=== PATIENT | male | born 1995 | race Caucasian/White ===

== ENCOUNTER 2016-12-15 09:18 | Inpatient (IN) | payer BC ==
[~2016-12-15] VITALS: Ht 180.3 cm; Wt 81.2 kg
[~2016-12-15 09:18] MED LIST: BACTRIM,SEPT1 TABLET PO; CARAFATE100 MG/ML PO; HYDROCODON-ACE1 EAC7 PO; KEFLEX500 MG PO; PEPCID40 MG PO
[2016-12-15 10:38] LABS: ADD MIUA? YES; BILIRUBIN SMALL; BLOOD NEGATIVE; COLOR AMBER ((YELLOW)); GLUCOSE (STRIP) NEGATIVE; KETONES 20; LEUKOCYTES TRACE; NITRITE NEGATIVE; PROTEIN (STRIP) 100; SPECIFIC GRAVITY 1.039 (1.000-1.030)
[2016-12-15 10:48] LABS: HEMATOCRIT 48.2 % (38.0-50.0); MCH 30.3 PG (29.0-34.0); MCHC 34.9 G/DL (30.0-36.0); MEAN PLAT.VOLUME 9.7 uM^3 (9.0-12.4); PLATELET COUNT 357 K/uL (156-360); RBC DIS.WIDTH-CV 12.3 % (11.8-14.6); RBC DIS.WIDTH-SD 39.3 % (39-53); RED BLOOD COUNT 5.54 M/uL (4.00-5.50); WHITE BLOOD COUNT 13.3 K/uL (4.1-10.2)
[2016-12-15 10:56] LABS: BACTERIA NONE SEEN /HPF; EPITHELIAL CELLS NONE SEEN /HPF; MUCUS TRACE /LPF; RED BLOOD CELLS 0-5 /HPF (0-5); UCUL ADDED? NO; WHITE BLOOD CELLS 0-5 /HPF (0-5)
[2016-12-15 11:02] LABS: CHLORIDE 107 mEq/L (99-109); POTASSIUM 3.2 mEq/L (3.7-5.4); SODIUM 141 mEq/L (136-147)
[2016-12-15 11:04] LABS: GLUCOSE 146 mg/dL (70-99)
[2016-12-15 11:05] LABS: ANION GAP 18 MEQ/L (2-14)
[2016-12-15 11:06] LABS: TOTAL BILIRUBIN 1.7 mg/dL (0.0-1.0)
[2016-12-15 11:07] LABS: ALKALINE PHOSPHATASE 55 IU/L (3-129)
[2016-12-15 11:08] LABS: GFR ESTIMATE (CALCULATED) > 59 mL/min/
[2016-12-15 11:09] LABS: UREA NITROGEN (BUN) 17 mg/dL (9-23)
[2016-12-15 11:11] LABS: LIPASE 34 U/L (1.0-51.0)
[2016-12-15] MEDS ORDERED: ONDANSETRON ODT8 MG PO (13:20)
[2016-12-15 16:54] LABS: INTER. NORMALIZED RATIO 1.1; PROTHROMBIN TIME 11.3 (9.2-11.2); PTT 25.8 (25-32)
[2016-12-15 17:10] VITALS: BP 145/88
[2016-12-15 19:49] VITALS: BP 125/69
[2016-12-15 23:31] VITALS: BP 122/56
[2016-12-16 00:51] LABS: HEMATOCRIT 40.9 % (38.0-50.0)
[2016-12-16 05:54] LABS: HEMATOCRIT 41.4 % (38.0-50.0); MCH 30.6 PG (29.0-34.0); MCHC 34.3 G/DL (30.0-36.0); MCV 89.2 FL (86-99); MEAN PLAT.VOLUME 9.7 uM^3 (9.0-12.4); PLATELET COUNT 258 K/uL (156-360); RBC DIS.WIDTH-CV 12.9 % (11.8-14.6); RED BLOOD COUNT 4.64 M/uL (4.00-5.50); WHITE BLOOD COUNT 10.8 K/uL (4.1-10.2)
[2016-12-16 06:20] LABS: ALKALINE PHOSPHATASE 43 IU/L (3-129); ANION GAP 8 MEQ/L (2-14); CHLORIDE 109 MEQ/L (99-109); GFR ESTIMATE (CALCULATED) > 59 mL/min/; SAMPLE HEMOLYSIS CHECK 0; SAMPLE ICTERIC CHECK 0; SAMPLE LIPEMIA CHECK 0; SODIUM 143 MEQ/L (136-147); TOTAL BILIRUBIN 1.2 MG/DL (0.0-1.0); UREA NITROGEN (BUN) 14 mg/dL (9-23)
[2016-12-16 06:31] LABS: GLUCOSE 91 mg/dL (70-99)
[2016-12-16 07:22] VITALS: BP 103/55
[2016-12-16 09:42] LABS: HEMATOCRIT 41.8 % (38.0-50.0); MCV 88.9 FL (86-99)
[2016-12-16 11:20] VITALS: BP 126/74
[2016-12-16 15:06] VITALS: BP 147/70
[2016-12-16 15:49] LABS: HEMATOCRIT 40.7 % (38.0-50.0); MCV 88.9 FL (86-99)
[2016-12-16 19:19] VITALS: BP 121/61
[2016-12-16 23:44] VITALS: BP 97/56
[2016-12-17 06:30] LABS: ANION GAP 7 MEQ/L (2-14); CHLORIDE 106 MEQ/L (99-109); GFR ESTIMATE (CALCULATED) > 59 mL/min/; GLUCOSE 86 mg/dL (70-99); POTASSIUM 3.9 MEQ/L (3.7-5.4); SAMPLE HEMOLYSIS CHECK 0; SAMPLE ICTERIC CHECK 0; SAMPLE LIPEMIA CHECK 0; SODIUM 142 MEQ/L (136-147); UREA NITROGEN (BUN) 12 mg/dL (9-23)
[2016-12-17 07:36] VITALS: BP 128/70
[2016-12-17] MEDS ORDERED: PROTONIX40 MG PO (11:00)
== END 2016-12-17 11:10 | disposition home or self-care (01) | DRG 200 ==
LOC: EME 09:18 → EDOF 15:35 → 5SOUTH 15:35
PROVIDERS: Hospitalist
DX: J98.2 Interstitial emphysema (principal); K92.0 Hematemesis; E87.2 Acidosis; R04.2 Hemoptysis; D72.829 Elevated white blood cell count, unspecified; E86.0 Dehydration; E11.9 Type 2 diabetes mellitus without complications; I10 Essential (primary) hypertension; T73.0XXA Starvation, initial encounter; E87.6 Hypokalemia; F12.90 Cannabis use, unspecified, uncomplicated; F17.200 Nicotine dependence, unspecified, uncomplicated; Z82.3 Family history of stroke; Z82.49 Family history of ischemic heart disease and other diseases of the circulatory system; Z83.3 Family history of diabetes mellitus; R07.9 Chest pain, unspecified; R10.11 Right upper quadrant pain; R10.12 Left upper quadrant pain; R10.13 Epigastric pain; R74.8 Abnormal levels of other serum enzymes
CPT/HCPCS: 71020; 74177; 74220; 80048; 80053; 81003; 83690; 85014; 85018; 85027; 85610; 85730; 99281; 99285; C9113; J2270; J2405; J2765; J3010; J3480; J7030

== ENCOUNTER 2017-06-26 17:26 | Emergency (ER) | payer BC ==
[~2017-06-26] VITALS: Ht 177.8 cm; Wt 69.4 kg
[~2017-06-26 17:26] MED LIST changes: +ONDANSETRON ODT8 MG PO; +PROTONIX40 MG PO
[2017-06-26 18:13] LABS: HEMATOCRIT 47.7 % (38.0-50.0); HEMOGLOBIN 17.9 G/DL (12.5-16.6); MCH 30.5 PG (29.0-34.0); MCHC 37.5 G/DL (30.0-36.0); MCV 81.4 FL (86-99); PLATELET COUNT 371 K/uL (156-360); RBC DIS.WIDTH-CV 11.9 % (11.8-14.6); RBC DIS.WIDTH-SD 35.2 % (39-53); RED BLOOD COUNT 5.86 M/uL (4.00-5.50); WHITE BLOOD COUNT 14.3 K/uL (4.1-10.2)
[2017-06-26 18:21] LABS: ALBUMIN 5.2 g/dL (3.2-4.8); CHLORIDE 98 mEq/L (99-109); POTASSIUM 3.1 mEq/L (3.7-5.4); SODIUM 133 mEq/L (136-147)
[2017-06-26 18:23] LABS: GLUCOSE 118 mg/dL (70-99)
[2017-06-26 18:24] LABS: TOTAL PROTEIN 8.4 g/dL (6.4-8.3)
[2017-06-26 18:26] LABS: TOTAL BILIRUBIN 1.7 mg/dL (0.0-1.0)
[2017-06-26 18:27] LABS: ALKALINE PHOSPHATASE 52 IU/L (3-129)
[2017-06-26 18:28] LABS: CREATININE 1.1 mg/dL (0.6-1.3); GFR ESTIMATE (CALCULATED) > 59 mL/min/ (58.99-99999); UREA NITROGEN (BUN) 20 mg/dL (9-23)
[2017-06-26 18:29] LABS: AST (GOT) 18 IU/L (2-34)
[2017-06-26 18:30] LABS: ALT (GPT) 15 IU/L (3-49)
[2017-06-26 18:31] LABS: LIPASE 11 U/L (1.0-51.0)
[2017-06-26 20:12] LABS: APPEARANCE CLEAR ((CLEAR)); BILIRUBIN NEGATIVE; BLOOD NEGATIVE; COLOR AMBER ((YELLOW)); GLUCOSE (STRIP) NEGATIVE; KETONES 20; LEUKOCYTES NEGATIVE; NITRITE NEGATIVE; PROTEIN (STRIP) 100
[2017-06-26 20:23] LABS: BACTERIA NONE SEEN /HPF; EPITHELIAL CELLS NONE SEEN /HPF; HYALINE CASTS 0-5 /LPF; MUCUS 3+ /LPF; RED BLOOD CELLS 0-5 /HPF (0-5); UCUL ADDED? NO; WHITE BLOOD CELLS 0-5 /HPF (0-5)
[2017-06-27 06:24] LABS: ALBUMIN 4.1 g/dL (3.2-4.8); CHLORIDE 104 mEq/L (99-109); POTASSIUM 3.2 mEq/L (3.7-5.4); SODIUM 137 mEq/L (136-147)
[2017-06-27 06:26] LABS: GLUCOSE 109 mg/dL (70-99)
[2017-06-27 06:28] LABS: TOTAL BILIRUBIN 1.2 mg/dL (0.0-1.0); TOTAL PROTEIN 6.3 g/dL (6.4-8.3)
[2017-06-27 06:30] LABS: ALKALINE PHOSPHATASE 42 IU/L (3-129); CREATININE 0.8 mg/dL (0.6-1.3); GFR ESTIMATE (CALCULATED) > 59 mL/min/ (58.99-99999)
[2017-06-27 06:31] LABS: UREA NITROGEN (BUN) 17 mg/dL (9-23)
[2017-06-27 06:32] LABS: AST (GOT) 14 IU/L (2-34)
[2017-06-27 06:33] LABS: ALT (GPT) 12 IU/L (3-49)
[2017-06-27 06:35] LABS: HEMATOCRIT 41.2 % (38.0-50.0); MCH 30.8 PG (29.0-34.0); MCHC 36.9 G/DL (30.0-36.0); MCV 83.4 FL (86-99); PLATELET COUNT 293 K/uL (156-360); RBC DIS.WIDTH-CV 12.1 % (11.8-14.6); RBC DIS.WIDTH-SD 36.9 % (39-53); RED BLOOD COUNT 4.94 M/uL (4.00-5.50); WHITE BLOOD COUNT 11.4 K/uL (4.1-10.2)
[2017-06-27 06:37] LABS: HEMOGLOBIN 15.2 G/DL (12.5-16.6)
[2017-06-27] MEDS ORDERED: COMPAZINE10 MG PO (07:52)
[2017-06-27 12:37] VITALS: BP 134/75
== END 2017-06-27 12:46 | disposition home or self-care (01) ==
LOC: EXP 17:26 → EME 17:26 → EXP 06-27 12:46
PROVIDERS: Physician Assistant
DX: K80.42 Calculus of bile duct with acute cholecystitis without obstruction (principal); F17.200 Nicotine dependence, unspecified, uncomplicated
CPT/HCPCS: 74181; 76705; 80053; 81003; 83690; 85027; 99281; 99285; J1200; J2270; J2405; J2765; J3010; J7030

== ENCOUNTER → 2017-06-28 | Outpatient (CLI) | payer BC ==
[~2017-06-28] MED LIST changes: +COMPAZINE10 MG PO
== END | disposition home or self-care (01) ==
LOC: NUC 07:52
DX: R93.2 Abnormal findings on diagnostic imaging of liver and biliary tract (principal)
CPT/HCPCS: 78227; A9537; J2805

== ENCOUNTER 2017-07-21 05:35 | Day surgery (SDC) | payer BC ==
[~2017-07-21] VITALS: Ht 177.8 cm; Wt 72.6 kg
[2017-07-21 05:56] VITALS: BP 116/65
[2017-07-21] MEDS ORDERED: OXYCODONE HCL5 MG PO (10:00)
[2017-07-21 11:09] VITALS: BP 150/89
[2017-07-21 12:08] VITALS: BP 143/82
== END 2017-07-21 12:15 | disposition home or self-care (01) ==
LOC: SDC 05:35
PROC: 0FT44ZZ Resection of Gallbladder, Percutaneous Endoscopic Approach (ICD-10-PCS; principal; 2017-07-21)
DX: K80.10 Calculus of gallbladder with chronic cholecystitis without obstruction (principal); K82.8 Other specified diseases of gallbladder; F17.210 Nicotine dependence, cigarettes, uncomplicated
CPT/HCPCS: 88304; J0330; J1170; J2001; J2250; J2405; J3010; J3475; S0074